=== PATIENT | male | born 1980 | race Caucasian/White ===

== ENCOUNTER 2017-11-24 19:22 | Inpatient (IN) ==
[2017-11-24 19:48] LABS: Bilirubin,Urine Large (Negative); Blood,Urine Negative (Negative); Clarity,Urine Clear (Clear); Color,Urine Orange (Yellow); Glucose,Urine (UA) Normal (Normal); Ketones,Urine Trace mg/dL (Negative); Leukocyte Esterase,Urine Trace (Negative); Nitrite,Urine Negative (Negative); Protein,Urine Trace mg/dL (Neg-Trace); Specific Gravity,Urine 1.029 (1.010-1.025); Urobilinogen,Urine Normal (Normal)
[2017-11-24] MEDS ORDERED: Ketorolac 60 MG/2 ML VIAL IM ONE (19:50)
[2017-11-24 19:51] LABS: Bacteria,Urine None Seen per hpf (None-Few); Hyaline Casts,Urine None Seen per lpf (None-Few); RBC,Urine 30-50 per hpf (0-3); Squamous Epithelial Cell,Urine None Seen per lpf (None-Few); WBC,Urine 0-3 per hpf (0-3)
--- NOTE | 2017-11-24 19:55 | Emergency Department Note ---
Disposition Clinical Impression: Acalculous cholecystitis, Direct hyperbilirubinemia, Elevated alkaline phosphatase level, Jaundice Pancreatitis Qualifiers: Chronicity: acute Pancreatitis type: unspecified pancreatitis type Acute pancreatitis complication: unspecified Qualified Code(s): K85.90 - Acute pancreatitis without necrosis or infection, unspecified Disposition: Admitted As Inpatient Condition: Good Time of Disposition: 23:10 General Adult HPI - General Chief complaint: ED Abdominal Pain Stated complaint: lower back pain Time Seen by Provider: 11/24/17 19:36 Source: patient Mode of arrival: ambulatory Limitations: no limitations Nursing Notes Reviewed: Yes Vital Signs Reviewed: Yes - History of Present Illness HPI Narrative: Mr. Sinclair is a very pleasant 37-year-old woman with a past history of rheumatoid arthritis or presents to the [facility] emergency department with chief complaint of low back pain and yellowing of the eyes. He reports that the symptoms have been present for roughly 5 days. At that time he was walking through a doorway and the door swung back and hit his right lower back abruptly and cause significant pain dropping into the floor. Since then his pain has been intermittently sharp in nature and nonradiating. He denies any abdominal pain, chest pain, palpitations, or shortness of breath. No subjective fevers. Over the last several days he has been complaining of nausea, vomiting and diarrhea that resolved 1 day ago. No recent sick contacts. No history of this previously. No EtOH or tobacco abuse. History of IV drug use. Family history with two of his uncles passing away from pancreatic cancer. No prior abdominal surgeries. No other complaints at this time. Pain Scale: 7 - Related Data Home Medications Medication Instructions Recorded Confirmed No Known Home Drugs 11/25/17 11/25/17 Allergies Allergy/AdvReac Type Severity Reaction Status Date / Time No Known Allergies Allergy Verified 05/09/16 23:50 Review of Systems: As Per HPI Past Medical History - Past Medical History Medical history: Reports: no medical history, other Surgical history: Reports: herniorrhaphy Psychiatric history: Reports: no psych history - Social History Smoking Status: Never smoker Alcohol use: Reports: none Drug use: Reports: none Physical Exam CONSTITUTIONAL: Alert and oriented X3 in no apparent distress HEAD: Normocephalic; atraumatic. EYES: EOMI, scleral icterus present Oropharynx: pink/moist RESP: NRD without use of accessory musculature, CTA b/l with no wheezes/rales/ rhonchi CARD: Regular rhythm, without murmurs, rubs, or gallop ABD: grossly normal, soft, non-tender, no guarding/distention/rigidity SKIN: Diffusely jaundiced throughout BACK: Right lumbar paraspinal spasm and tenderness to palpation EXT: DP/Rad pulses 2+ and symmetrical; no lateralizing edema; no other lesions seen PSYCH: appropriate mood/affect - General Limitations: no limitations General appearance: alert, in no apparent distress Course Course Narrative: Patient was seen and examined at bedside. Vital signs were reviewed and were unremarkable. Physical examination demonstrates scleral icterus with noticing throughout. Abdominal exam was benign. Back exam demonstrates right lumbar paraspinal tenderness to palpation and muscle spasm. Toradol and Flexeril were given. IV access was obtained. In the setting of painless jaundice will further evaluate with CT of the abdomen and pelvis with IV contrast. Urinalysis , CBC, Lipase, BMP, hepatic panel, coags were obtained. Disposition pending. 2131: Initial workup shows elevated LFTs and alk phos. Direct bilirubin 4.4 and indirect 1.3. Urine shows bilirubin. CT shows a contracted diffuse wall thickening with pericholecystic fluid. Findings were discussed with patient and we will proceed with US of the gallbladder. Zosyn x1 dose was given. 2300: Ultrasound gallbladder demonstrated findings consistent with acalculous cholecystitis. No stones present. No dilation of CBD. Case was discussed with general surgery team, Dr. Barajas and Hospitalist, Dr. Hutton who will admit patient for further evaluation and intervention. Disposition plan were discussed with patient who understands and agrees. All questions and concerns were addressed. Vital Signs Temperature 97.5 F L 11/24/17 19:31 Pulse Rate 73 11/24/17 19:31 Respiratory Rate 16 11/24/17 19:31 Blood Pressure 120/80 11/24/17 19:31 O2 Sat by Pulse Oximetry 99 11/24/17 19:31 Temperature 97.9 F 11/26/17 10:44 Pulse Rate 59 11/26/17 10:44 Respiratory Rate 12 11/26/17 10:44 Blood Pressure 116/76 11/26/17 10:44 O2 Sat by Pulse Oximetry 97 11/26/17 10:44 Oxygen Delivery Oxygen Delivery Room Air Medical Decision Making - Medical Records Medical records reviewed: Yes I reviewed the patient's medical records. - Lab Data Lab results reviewed: Yes I reviewed the patient's lab results. Result diagrams: 11/26/17 06:01 11/26/17 06:01 Lab Results 11/24/17 11/24/17 11/24/17 Range/Units 19:29 20:04 20:04 WBC (4.3-11.1) K/mcL RBC (4.19-5.50) M/mcL Hgb (12.9-16.9) g/dL Hct (37.5-50.1) % MCV (83.0-100.0) fL MCH (28.0-33.3) pg MCHC (31.6-35.5) g/dL RDW (11.5-14.5) % Plt Count (140-400) K/mcL MPV (9.4-12.4) fL Immature Gran % (0-4) % Seg Neutrophils % % Lymphocytes % % Monocytes % % Eosinophils % % Basophils % % Neutrophils # (1.6-8.9) K/mcL Lymphocytes # (0.6-4.6) K/mcL Monocytes # (0.0-1.3) K/mcL Eosinophils # (0.0-0.6) K/mcL Basophils # (0.0-0.2) K/mcL Reactive Lymphocytes (Not Present) PT 13.0 H (9.4-12.1) Seconds INR 1.2 APTT 37.1 H (26.0-36.0) Seconds Sodium 135 L (136-145) mEq/L Potassium 4.3 (3.5-5.1) mEq/L Chloride 102 (98-107) mEq/L Carbon Dioxide 30 H (23-29) mEq/L BUN 14 (6-20) mg/dL Creatinine 0.90 (0.70-1.30) mg/dL Est GFR ( Amer) > 60 (> 60) Est GFR (Non-Af Amer) > 60 (> 60) BUN/Creatinine Ratio 16 (6-26) Glucose 108 H (70-105) mg/dL POC Glucose (70-99) mg/dL Calculated Osmolality 281 (280-300) Calcium 8.3 L (8.6-10.3) mg/dL Total Bilirubin 5.7 H (0.3-1.0) mg/dL Direct Bilirubin 4.4 H (0.0-0.2) mg/dL Indirect Bilirubin 1.3 H (0.0-1.2) mg/dL AST 1501 H (13-39) Units/L ALT > 500 H (7-52) Units/L Alkaline Phosphatase 360 H (34-104) Units/L Serum Total Protein 5.9 L (6.4-8.9) g/dL Albumin 3.2 L (3.5-5.7) g/dL Globulin 2.7 (2.4-3.5) g/dL Albumin/Globulin Ratio 1.2 (1.1-2.2) Lipase 336 H (11-82) Units/L Urine Color [place] A (Yellow) Urine Clarity Clear (Clear) Urine pH 6.0 (5.0-8.0) pH Units Ur Specific [employer] 1.029 H (1.010-1.025) Urine Protein Trace (Neg-Trace) mg/dL Urine Glucose (UA) Normal (Normal) mg/dL Urine Ketones Trace H (Negative) mg/dL Urine Blood Negative (Negative) Urine Nitrite Negative (Negative) Urine Bilirubin Large H (Negative) Urine Urobilinogen Normal (Normal) mg/dL Ur Leukocyte Esterase Trace H (Negative) Urine Microscopic RBC 30-50 H (0-3) per hpf Urine Microscopic WBC 0-3 (0-3) per hpf Ur Squamous Epith Cells None Seen (None-Few) per lpf Urine Bacteria None Seen (None-Few) per hpf Hyaline Casts None Seen (None-Few) per lpf Ur Culture Indicated? YES A (NO) 11/24/17 11/25/17 Range/Units 20:04 00:37 WBC 4.6 (4.3-11.1) K/mcL RBC 4.96 (4.19-5.50) M/mcL Hgb 14.7 (12.9-16.9) g/dL Hct 43.9 (37.5-50.1) % MCV 88.5 (83.0-100.0) fL MCH 29.6 (28.0-33.3) pg MCHC 33.5 (31.6-35.5) g/dL RDW 13.9 (11.5-14.5) % Plt Count 231 (140-400) K/mcL MPV 10.9 (9.4-12.4) fL Immature Gran % 0.0 (0-4) % Seg Neutrophils % 48.9 % Lymphocytes % 31.0 % Monocytes % 16.9 % Eosinophils % 2.6 % Basophils % 0.6 % Neutrophils # 2.3 (1.6-8.9) K/mcL Lymphocytes # 1.4 (0.6-4.6) K/mcL Monocytes # 0.8 (0.0-1.3) K/mcL Eosinophils # 0.1 (0.0-0.6) K/mcL Basophils # 0.0 (0.0-0.2) K/mcL Reactive Lymphocytes Present A (Not Present) PT (9.4-12.1) Seconds INR APTT (26.0-36.0) Seconds Sodium (136-145) mEq/L Potassium (3.5-5.1) mEq/L Chloride (98-107) mEq/L Carbon Dioxide (23-29) mEq/L BUN (6-20) mg/dL Creatinine (0.70-1.30) mg/dL Est GFR ( Amer) (> 60) Est GFR (Non-Af Amer) (> 60) BUN/Creatinine Ratio (6-26) Glucose (70-105) mg/dL POC Glucose 100 H (70-99) mg/dL Calculated Osmolality (280-300) Calcium (8.6-10.3) mg/dL Total Bilirubin (0.3-1.0) mg/dL Direct Bilirubin (0.0-0.2) mg/dL Indirect Bilirubin (0.0-1.2) mg/dL AST (13-39) Units/L ALT (7-52) Units/L Alkaline Phosphatase (34-104) Units/L Serum Total Protein (6.4-8.9) g/dL Albumin (3.5-5.7) g/dL Globulin (2.4-3.5) g/dL Albumin/Globulin Ratio (1.1-2.2) Lipase (11-82) Units/L Urine Color (Yellow) Urine Clarity (Clear) Urine pH (5.0-8.0) pH Units Ur Specific [employer] (1.010-1.025) Urine Protein (Neg-Trace) mg/dL Urine Glucose (UA) (Normal) mg/dL Urine Ketones (Negative) mg/dL Urine Blood (Negative) Urine Nitrite (Negative) Urine Bilirubin (Negative) Urine Urobilinogen (Normal) mg/dL Ur Leukocyte Esterase (Negative) Urine Microscopic RBC (0-3) per hpf Urine Microscopic WBC (0-3) per hpf Ur Squamous Epith Cells (None-Few) per lpf Urine Bacteria (None-Few) per hpf Hyaline Casts (None-Few) per lpf Ur Culture Indicated? (NO) - Radiology Data Radiology results reviewed: Yes I reviewed the patient's radiology results. Abdomen/Pelvis CT 11/24/17 20:39 IMPRESSION: Gallbladder is mildly contracted diffuse wall thickening/pericholecystic fluid. Mild nonspecific periportal edema. RECOMMENDATIONS: Further evaluation can be considered with gallbladder ultrasound, HIDA scan and/or MRCP D/ / Edilia Gauthier MD / Edilia Gauthier MD Interpreting Provider: Edilia Gauthier MD Gallbladder Ultrasound 11/24/17 21:28 IMPRESSION: 1. The gallbladder wall appears to be thick walled and edematous but no gallstones are visualized. Findings suggest the possibility of acalculous cholecystitis. 2. Otherwise, unremarkable right upper quadrant ultrasound D/ / Blayne Bhagat MD / Blayne Bhagat MD Interpreting Provider: Blayne Bhagat MD Attestation Statement - Attestation Attestation: I examined this patient and my medical decision-making was reviewed with the Resident Physician, Dr. Ojeda. I agree with the documented findings, disposition and treatment plan as described except to the extent set forth below. Pt is a 7-year-old white male who denies having any significant past medical history who presents to the emergency department today with a 5 day history of gradually worsening paraspinal musculoskeletal back pain following injury at home. Patient arrives with jaundice and scleral icterus but denies any fevers or chills, no abdominal pain or cramping, no nausea vomiting, does admit to a history of IV drug use. Patient denies any abscess or skin changes, no bowel changes, and no mental status changes on arrival. Patient is awake alert and oriented 4 in no acute distress with no other complaints. I agree with patient's physical exam findings as documented, vital signs are stable on arrival. Patient was evaluated in clinically on exam from a reported blunt injury while walking through a doorway sustained what appears to be some area of muscle contusion and spasm. Patient with palpable spasm on exam and likely the cause of his back discomfort. This was treated with medication on arrival. Her bigger concern was the fact that patient was having painless jaundice in a family history of pancreatic cancer. Patient had full laboratory evaluation including CT scan of the abdomen and pelvis with contrast as well as ultrasound imaging of the gallbladder. Patient was found have a calculus cholecystitis, pancreatitis, and jaundice. No stones were seen on either evaluation but there is concern for an obstructive issue in the biliary tract. Case was discussed with Dr. barajas who was consulate from the ED to follow the patient and he was admitted to the hospitalist service following antibiotics being initiated in the ED. Patient has remained comfortable and hemodynamically stable in no acute distress throughout his ED course.
[2017-11-24 20:36] LABS: BUN/Creatinine Ratio 16 (6-26); Blood Urea Nitrogen 14 mg/dL (6-20); Calcium 8.3 mg/dL (8.6-10.3); Carbon Dioxide 30 mEq/L (23-29); Chloride 102 mEq/L (98-107); Glucose 108 mg/dL (70-105); Osmolality,Calculated 281 (280-300); Potassium 4.3 mEq/L (3.5-5.1); Sodium 135 mEq/L (136-145); eGFR For African Americans > 60 (> 60); eGFR For Non-African Americans > 60 (> 60)
[2017-11-24 20:49] LABS: INR 1.2
[2017-11-24 20:51] LABS: Activated Partial Thrombo Time 37.1 Seconds (26.0-36.0)
[2017-11-24 21:01] LABS: Alanine Aminotransferase > 500 Units/L (7-52); Albumin 3.2 g/dL (3.5-5.7); Albumin/Globulin Ratio 1.2 (1.1-2.2); Alkaline Phosphatase 360 Units/L (34-104); Aspartate Amino Transferase 1501 Units/L (13-39); Bilirubin,Direct 4.4 mg/dL (0.0-0.2); Bilirubin,Indirect 1.3 mg/dL (0.0-1.2); Bilirubin,Total 5.7 mg/dL (0.3-1.0); Globulin 2.7 g/dL (2.4-3.5); Total Protein 5.9 g/dL (6.4-8.9)
[2017-11-24] MEDS ORDERED: 0.9 % Sodium Chloride 1,000 ML ONE (21:06)
[2017-11-24 21:44] LABS: Basophils % 0.6 %; Eosinophils # 0.1 K/mcL (0.0-0.6); Eosinophils % 2.6 %; Hematocrit 43.9 % (37.5-50.1); Hemoglobin 14.7 g/dL (12.9-16.9); Lymphocytes # 1.4 K/mcL (0.6-4.6); Mean Corpuscular HGB Conc 33.5 g/dL (31.6-35.5); Mean Corpuscular Hemoglobin 29.6 pg (28.0-33.3); Mean Corpuscular Volume 88.5 fL (83.0-100.0); Mean Platelet Volume 10.9 fL (9.4-12.4); Monocytes # 0.8 K/mcL (0.0-1.3); Monocytes % 16.9 %; Neutrophils # 2.3 K/mcL (1.6-8.9); Platelet Count 231 K/mcL (140-400); Red Blood Count 4.96 M/mcL (4.19-5.50); Red Cell Distribution Width 13.9 % (11.5-14.5); Segmented Neutrophils % 48.9 %
[2017-11-24 21:57] LABS: Lipase 336 Units/L (11-82)
[2017-11-24 22:06] LABS: Reactive Lymphocytes Present (Not Present)
[2017-11-24] MEDS ORDERED: Piperacillin/Tazobactam 3.375 GM in 0.9 % Sodium Chloride Mini Bag 100 ML IVPB ONE (22:06)
[2017-11-25] MEDS ORDERED: Naloxone 0.4 MG/ML INJ IVP PRN (03:18)
[2017-11-25] MEDS ORDERED: 0.9 % Sodium Chloride 1,000 ML ONE (03:40)
[2017-11-25] MEDS: 0.9 % Sodium Chloride 1,000 ML IVC SCH ×2 (03:49→12:15)
[2017-11-25] MEDS: Ketorolac 15 MG/ML VIAL IVP PRN ×2 (03:53→23:29)
[2017-11-25 05:08] LABS: Basophils % 0.4 %; Eosinophils # 0.2 K/mcL (0.0-0.6); Eosinophils % 3.2 %; Hematocrit 40.6 % (37.5-50.1); Hemoglobin 13.9 g/dL (12.9-16.9); Immature Granulocytes % 0.2 % (0-4); Lymphocytes # 1.4 K/mcL (0.6-4.6); Lymphocytes % 29.1 %; Mean Corpuscular HGB Conc 34.2 g/dL (31.6-35.5); Mean Corpuscular Volume 87.7 fL (83.0-100.0); Mean Platelet Volume 10.7 fL (9.4-12.4); Monocytes # 0.7 K/mcL (0.0-1.3); Monocytes % 14.3 %; Neutrophils # 2.5 K/mcL (1.6-8.9); Platelet Count 232 K/mcL (140-400); Red Blood Count 4.63 M/mcL (4.19-5.50); Red Cell Distribution Width 13.8 % (11.5-14.5); Segmented Neutrophils % 52.8 %
[2017-11-25 05:26] LABS: INR 1.2; Prothrombin Time 12.8 Seconds (9.4-12.1)
--- NOTE | 2017-11-25 05:30 | Internal Med History&Physical ---
Date of Encounter: 11/25/17 Time of Encounter: 01:00 Internal Medicine - H&P: HPI Chief complaint: Low back pain Admitted From: Home Plans for Post Hospital Care: Home History of present illness: Mr. Sinclair is a 37 year old male presents to ER for low back pain. Patient is generally in good health. Has remote history of IV drug use. Patient said he has low back pain since the 5 days ago. The pain located on bilateral lower back and radiated to lower abdominal. Patient denies dysuria, burning on urination, or increased frequency/urgency. Patient has mild subjective fever. He has chills. 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 Patient has nausea and has vomited 6-7 times in last 5 days, the vomiting are liquid, no blood in it. In the emergency room, patient was found elevated bilirubin, especially direct bilirubin. CT abdomen has been done, suggest cholecystitis. Further US liver shows possible acalculous cholecystitis. No CBD dilation identified. Patient was admitted for jaundice, possible cholecystitis, abnormal liver function, and UTI Past Med Surg Social Fam HX - Past Medical History Medical history: no medical history, other Psychiatric history: no psych history - Past Surgical History Surgical History: herniorrhaphy - Social History Smoking Status: Never smoker Smokeless Tobacco Status: No Alcohol use: none Drug use: none - Family History Father Name: aHi Sinclair Age: 60 Living Status: Still Living Hx Family Neuromuscular Disorders: Yes (Arthritis, spindolosis, nec and hip surgery) Internal Medicine - H&P: Meds RX: Meloxicam 15 mg PO DAILY PRN #0 05/13/16 [Rx] 3 Allergy/AdvReac Type Severity Reaction Status Date / Time No Known Allergies Allergy Verified 05/09/16 23:50 All Systems PM: A 10-system review of systems was performed and is negative for pertinent findings except as documented above in the HPI. - Constitutional Vitals: Temp Pulse Resp BP Pulse Ox 98.2 F 63 14 129/79 98 11/25/17 03:35 11/25/17 03:35 11/25/17 03:35 11/25/17 03:35 11/25/17 03:35 General appearance: Present: mild distress, A&O X 3, answers questions appropriately - Head Head exam: Present: atraumatic, normocephalic - Eye Eye exam: Present: PERRL, scleral icterus, conjuntiva pink, sclera anicteric Pupils: Present: PERRL - Neck Neck exam general surgery: Present: supple, trachea midline. Absent: lymphadenopathy - Respiratory Respiratory exam: Present: CTAB. Absent: accessory muscle use, rales, rhonchi, wheezes - Cardiovascular Cardiovascular exam: Present: RRR, +S1, +S2. Absent: diastolic murmur, gallop, rubs, systolic murmur - GI/Abdominal GI/Abdominal exam: Present: normal bowel sounds, soft, tenderness (Mild tenderness on bilateral lower quadrant, no rebound or guarding), no peritoneal signs. Absent: distended - Extremities Exam Extremities exam: Present: warm, radial pulses palpable and symmetrical. Absent : calf tenderness, cyanotic, pedal edema - Neurological Exam Neurological exam: Present: CN II-XII intact, oriented X3, no focal deficits. Absent: pronater drift, facial droop, speech deficit - Skin Skin exam: Present: dry, intact Internal Med - H&P Results - Labs CBC & Chem 7: 11/24/17 20:04 11/24/17 20:04 - Assessment and plan (1) Abnormal liver function Current Visit: Yes Status: Acute Assessment and plan: Patient has significantly high AST/ALT level, etiology is undetermined. No bile duct obstruction identified on US liver. - Patient has a history of IV drug use, will check hepatitis panel to rule out hepatitis - Absolutely avoid hepatotoxic medications - Patient denies recent new medication. He take Aleve for pain occasionally recently. Denies acetaminophen use - Closely follow-up liver function, PT/INR - We will consult GI for further management (2) Acalculous cholecystitis Current Visit: Yes Status: Acute Assessment and plan: US liver shows acalculous cholecystitis. Surgical consult was called by ER. - Place patient on nothing by mouth, IV fluid - IV Zosyn - Surgical consult (3) Jaundice Current Visit: Yes Status: Acute Assessment and plan: Etiology is undetermined. Direct bilirubin dominated, however, no bile duct obstruction identified. - Consult surgery and GI for further recommendation - Closely follow-up liver function - Keep patient nothing by mouth, IV fluid. (4) Pancreatitis Current Visit: Yes Status: Acute Assessment and plan: Patient has elevated lipase. Continue nothing by mouth, IV fluid, pain control. Follow-up lipase level Qualifiers: Chronicity: acute Pancreatitis type: unspecified pancreatitis type Acute pancreatitis complication: unspecified Qualified Code(s): K85.90 - Acute pancreatitis without necrosis or infection, unspecified (5) DVT prophylaxis Current Visit: No Status: Acute Assessment and plan: EPCD - Time Spent With Patient Total time spent is greater than 50% in coordination of care (as documented) at patient's floor/unit and/or counseling patient: 40 minutes Greater than 35 minutes
[2017-11-25 05:57] LABS: Platelet Estimate Slight Decrease (Normal)
[2017-11-25 05:59] LABS: Alanine Aminotransferase > 500 Units/L (7-52); Albumin 2.8 g/dL (3.5-5.7); Albumin/Globulin Ratio 1.1 (1.1-2.2); Alkaline Phosphatase 330 Units/L (34-104); Aspartate Amino Transferase 1183 Units/L (13-39); BUN/Creatinine Ratio 16 (6-26); Bilirubin,Direct 4.6 mg/dL (0.0-0.2); Bilirubin,Indirect 1.1 mg/dL (0.0-1.2); Bilirubin,Total 5.7 mg/dL (0.3-1.0); Blood Urea Nitrogen 13 mg/dL (6-20); Calcium 7.7 mg/dL (8.6-10.3); Carbon Dioxide 27 mEq/L (23-29); Chloride 105 mEq/L (98-107); Globulin 2.5 g/dL (2.4-3.5); Glucose 102 mg/dL (70-105); Magnesium 1.5 mg/dL (1.6-2.6); Osmolality,Calculated 282 (280-300); Potassium 3.3 mEq/L (3.5-5.1); Sodium 136 mEq/L (136-145); Total Protein 5.3 g/dL (6.4-8.9); eGFR For African Americans > 60 (> 60); eGFR For Non-African Americans > 60 (> 60)
[2017-11-25 06:29] LABS: Hepatitis B Core IgM Nonreactive (Nonreactive); Hepatitis B Surface Antigen Nonreactive (Nonreactive)
[2017-11-25 06:55] LABS: Hepatitis A Antibody IgM Reactive (Nonreactive)
[2017-11-25 06:59] LABS: Hepatitis C Virus Antibody Reactive (Nonreactive)
[2017-11-25] MEDS: Piperacillin/Tazobactam 3.375 GM in 0.9 % Sodium Chloride Mini Bag 100 ML IVPB SCH ×3 (09:17→23:25)
[2017-11-25] MEDS ORDERED: Potassium Chloride 40 MEQ, Lidocaine 1% 2 ML in D5% in Water 500 ML IVPB ONE (10:22)
--- NOTE | 2017-11-25 13:58 | General Surgery Consult Note ---
Date of Encounter: 11/25/17 Time of Encounter: 12:55 History of Present Illness Consult date: 11/25/17 Reason for consult: abdominal pain Requesting physician: Perez Ojeda History of present illness: 37-year-old male referred for further surgical evaluation and possible treatment after presenting to the emergency department with a 5-6 day history of progressive low back pain and jaundice. Patient describes progressive abdominal pain, companied by nausea, vomiting, and diarrhea. Evaluation in the emergency department included blood work and CT abdomen/pelvis. Laboratories notable for normal white count of 4.6 with no significant differential; hemoglobin 14.7, hematocrit 43.9. Platelet count 231,000. PT was slightly elevated at 13.0, INR 1.2. Electrolytes notable for sodium of 135, bicarbonate 30, BUN 14, creatinine 0.90. Total bilirubin 5.7 with a direct component 4.4; AST 1501; ALT greater than 500; alkaline phosphatase 360. Lipase 336. Repeat labs this morning show a persistent hyperbilirubinemia 5.7, AST has improved slightly to 1183, ALT remains greater than 500; alkaline phosphatase 330. Lipase 268 CT abdomen/pelvis was reviewed with [facility]. In addition ultrasound of the gallbladder was also reviewed. Findings include mild periportal edema within the liver; gallbladder is contracted with diffuse wall thickening and surrounding fluid. The fluid is described as pericholecystic fluid however in the face of acute pancreatitis, this fluid may be due to liver disease such as hepatitis rather than an acute cholecystitis. USGB also showed a contracted thick-walled gallbladder with edematous flui in the gallbladder wall. No gallstones were visualized. The sonographic Keating sign was described as negative. The findings are suggestive of hepatitis rather than gallbladder disease. Past medical history: Unremarkable; the patient denies any prior knowledge of hepatitis though has multiple cutaneous tattoos Allergies: No known drug allergies Medications: Patient is on no home medications Surgical history: Bilateral inguinal herniorrhaphies completed several years ago. Social history: Patient denies ever having smoked; he does not consume alcohol or use illicit drugs. Physical examination: Age-appropriate male who appears to be in no acute distress. He is admittedly feeling better than on presentation to the emergency department. He is 1.75 m tall, 75.4 kg, BMI 24.5 The patient is afebrile at 98.1, pulse 60, respirations 14, blood pressure 121/78. SPO2 on room air 98% The patient is icteric; he has multiple cutaneous to 2 Lungs: Clear bilaterally; no obvious abdominal pain with deep inspiration Cardiac: Regular rate, no appreciable murmurs Abdomen: Soft with minimal epigastric tenderness; no obvious intra-abdominal masses. No rebound. Hypoactive bowel sounds. Extremities: No obvious clubbing, cyanosis, or edema. Impression: 37-year-old male admitted after presenting to emerge from with fiber six-day history progressive abdominal pain, low back pain and jaundice. Surgical referral for possible acute acalculous cholecystitis. The current clinical findings, history and radiologic imaging is more consistent with hepatitis and pancreatitis of indeterminate etiology Recommendations: further evaluation by [facility]; possible MRCP v ERCP Hepatitis profile; Hb scan with CCK Will defer surgical intervention/cholecystectomy for now. Past Med Surg Social Fam HX - Past Medical History Medical history: no medical history, other Psychiatric history: no psych history - Past Surgical History Surgical History: herniorrhaphy - Social History Smoking Status: Never smoker Smokeless Tobacco Status: No Alcohol use: none Drug use: none - Family History Father Name: Hai Sinclair Age: 60 Living Status: Still Living Hx Family Neuromuscular Disorders: Yes (Arthritis, spindolosis, nec and hip surgery) Medications and Allergies No Known Home Drugs 11/25/17 [History] 3 Allergy/AdvReac Type Severity Reaction Status Date / Time No Known Allergies Allergy Verified 05/09/16 23:50 Review of Systems All systems PM: The remainder of the systems were reviewed and are negative General Surgery Exam Initial Vital Signs Temp Pulse Resp BP Pulse Ox 97.5 F L 73 16 120/80 99 11/24/17 19:31 11/24/17 19:31 11/24/17 19:31 11/24/17 19:31 11/24/17 19:31 Exam Initial Vital Signs Temp Pulse Resp BP Pulse Ox 97.5 F L 73 16 120/80 99 11/24/17 19:31 11/24/17 19:31 11/24/17 19:31 11/24/17 19:31 11/24/17 19:31 Results - Labs 11/25/17 04:38 11/25/17 04:38 Abnormal lab results Reactive Lymphocytes Present (Not Present) A 11/24/17 20:04 Platelet Estimate Slight Decrease (Normal) L 11/25/17 04:38 PT 12.8 Seconds (9.4-12.1) H 11/25/17 04:38 APTT 37.1 Seconds (26.0-36.0) H 11/24/17 20:04 Potassium 3.3 mEq/L (3.5-5.1) L 11/25/17 04:38 Calcium 7.7 mg/dL (8.6-10.3) L 11/25/17 04:38 Magnesium 1.5 mg/dL (1.6-2.6) L 11/25/17 04:38 Total Bilirubin 5.7 mg/dL (0.3-1.0) H 11/25/17 04:38 Direct Bilirubin 4.6 mg/dL (0.0-0.2) H 11/25/17 04:38 AST 1183 Units/L (13-39) H 11/25/17 04:38 ALT > 500 Units/L (7-52) H 11/25/17 04:38 Alkaline Phosphatase 330 Units/L (34-104) H 11/25/17 04:38 Serum Total Protein 5.3 g/dL (6.4-8.9) L 11/25/17 04:38 Albumin 2.8 g/dL (3.5-5.7) L 11/25/17 04:38 Lipase 268 Units/L (11-82) H 11/25/17 04:38 Urine Color [place] (Yellow) A 11/24/17 19:29 Ur Specific [place] 1.029 (1.010-1.025) H 11/24/17 19:29 Urine Ketones Trace mg/dL (Negative) H 11/24/17 19:29 Urine Bilirubin Large (Negative) H 11/24/17 19:29 Ur Leukocyte Esterase Trace (Negative) H 11/24/17 19:29 Urine Microscopic RBC 30-50 per hpf (0-3) H 11/24/17 19:29 Ur Culture Indicated? YES (NO) A 11/24/17 19:29 Hepatitis C Ab Screen Reactive (Nonreactive) H 11/25/17 04:38 Diabetes panel 11/25/17 Range/Units 04:38 Sodium 136 (136-145) mEq/L Potassium 3.3 L (3.5-5.1) mEq/L Chloride 105 (98-107) mEq/L Carbon Dioxide 27 (23-29) mEq/L BUN 13 (6-20) mg/dL Creatinine 0.79 (0.70-1.30) mg/dL Glucose 102 (70-105) mg/dL Calcium 7.7 L (8.6-10.3) mg/dL AST 1183 H (13-39) Units/L ALT > 500 H (7-52) Units/L Alkaline Phosphatase 330 H (34-104) Units/L Albumin 2.8 L (3.5-5.7) g/dL Calcium panel 11/25/17 Range/Units 04:38 Calcium 7.7 L (8.6-10.3) mg/dL Albumin 2.8 L (3.5-5.7) g/dL Pituitary panel 11/25/17 Range/Units 04:38 Sodium 136 (136-145) mEq/L Potassium 3.3 L (3.5-5.1) mEq/L Chloride 105 (98-107) mEq/L Carbon Dioxide 27 (23-29) mEq/L BUN 13 (6-20) mg/dL Creatinine 0.79 (0.70-1.30) mg/dL Glucose 102 (70-105) mg/dL Calcium 7.7 L (8.6-10.3) mg/dL Adrenal panel 11/25/17 Range/Units 04:38 Sodium 136 (136-145) mEq/L Potassium 3.3 L (3.5-5.1) mEq/L Chloride 105 (98-107) mEq/L Carbon Dioxide 27 (23-29) mEq/L BUN 13 (6-20) mg/dL Creatinine 0.79 (0.70-1.30) mg/dL Glucose 102 (70-105) mg/dL Calcium 7.7 L (8.6-10.3) mg/dL Total Bilirubin 5.7 H (0.3-1.0) mg/dL AST 1183 H (13-39) Units/L ALT > 500 H (7-52) Units/L Alkaline Phosphatase 330 H (34-104) Units/L Albumin 2.8 L (3.5-5.7) g/dL All other labs normal. Consult Discharge Plan - Plan Referrals: Efren Garcia DO [Partnered Physician] -
--- NOTE | 2017-11-25 14:08 | Gastroenterology Consult Note ---
<Aminata Keene - Last Filed: 11/25/17 14:03> Date of Encounter: 11/25/17 Time of Encounter: 11:05 - Assessment and plan (1) Abnormal liver function Current Visit: Yes Status: Acute Assessment and plan: Pt has elevated LFTs most likely due to Hep C infection. CT shows nonspecific edema of the gallbladder wall without cholelithiasis. Lipase is also elevated which may indicate acute pancreatitis. Will order MRCP to rule out choledocholithiasis. Pt likely does not have acalculus choleystitis as he does not appear acutely ill at this time. - Time Spent With Patient Total time spent is greater than 50% in coordination of care (as documented) at patient's floor/unit and/or counseling patient: GI History of Present Illness - Data of Consult Patient: new to practice Consult date: 11/25/17 Requesting Physician: Cameron Sharp MD - Consult Narrative Reason for consult: elevated LFTs History of present illness: Mr. Sinclair is a 37 year old male presents to ER for low back pain. Patient is generally in good health. Has remote history of IV drug use, denies any IVDU in the past year. Patient said he has low back pain since the 5 days ago. The pain located on bilateral lower back and radiated to lower abdominal. Patient denies dysuria, burning on urination, or increased frequency/urgency. Patient has mild subjective fever. He has chills. Patient has noticed the urine color is dark orange for about 5 days, with stool color is harmonic analyst than normal. Patient has nausea and has vomited 6-7 times in last 5 days, the vomiting are liquid, no blood in it. In the emergency room, patient was found elevated bilirubin, especially direct bilirubin. CT abdomen has been done, suggest cholecystitis. Further US liver shows possible acalculous cholecystitis. No CBD dilation identified. Patient was admitted for jaundice, possible cholecystitis, abnormal liver function, and UTI. He denies any nausea, vomiting , abdominal pain at this time. he states lower back pain in somewhat improved. He denies any bloody or tarry stools. He denies any previous liver disease or jaundice. He states Hep C is a new diagnosis. EGD: denies Colon: denies NSAIDS toradol, aleve on occasion more often the past week Anticoagulation: denies Past Med Surg Social Fam HX - Past Medical History Medical history: no medical history, other Psychiatric history: no psych history - Past Surgical History Surgical History: herniorrhaphy - Social History Smoking Status: Never smoker Smokeless Tobacco Status: No Alcohol use: none Drug use: none - Family History Father Name: Hai Sinclair Age: 60 Living Status: Still Living Hx Family Neuromuscular Disorders: Yes (Arthritis, spindolosis, nec and hip surgery) Review of Systems: GI: as per [facility]RAIG GENERAL: reports low grade temp and chills at home EYES: yellow discoloration ENT: denies pain with swallowing or difficulty swallowing CARDIO: denies chest pain, palpitations RESP: No Shortness of breath with exertion : reports dark orange urine NEURO: denies any weakness HEME: Denies any bruising MS: denies joint pain, joint swelling or back pain. DERM: denies rash or itching PSYCH: Denies history of anxiety or depression - Constitutional Vitals: Temp Pulse Resp BP Pulse Ox 98.1 F 60 14 121/78 98 11/25/17 11:11 11/25/17 11:11 11/25/17 11:11 11/25/17 11:11 11/25/17 11:11 Exam: CONSTITUTIONAL:~alert, no acute distress.~HEAD:~normocephalic.~EYES:~jaundice.~ NECK:~no obvious swelling.~HEART:~regular rate and rhythm, no murmurs.~LUNGS:~ bilateral good air entry.~ABDOMEN:~non distended, soft, non tender, no masses palpable, no organomegaly.~RECTAL EXAM:~Deferred.~EXTREMITIES:~no clubbing, cyanosis or edema.~SKIN:~jaundice noted, multiple tattoos.~NEUROLOGIC:~no obvious focal defect.~~~~ Results - Labs CBC & Chem 7: 11/25/17 04:38 11/25/17 04:38 Labs: Last Result Calcium 7.7 mg/dL (8.6-10.3) L 11/25/17 04:38 Entire Visit Hgb 13.9 g/dL (12.9-16.9) 11/25/17 04:38 Hct 40.6 % (37.5-50.1) 11/25/17 04:38 PT 12.8 Seconds (9.4-12.1) H 11/25/17 04:38 Total Bilirubin 5.7 mg/dL (0.3-1.0) H 11/25/17 04:38 AST 1183 Units/L (13-39) H 11/25/17 04:38 ALT > 500 Units/L (7-52) H 11/25/17 04:38 Lipase 268 Units/L (11-82) H 11/25/17 04:38 - ABG ABG results: PT/INR, D-dimer PT 12.8 Seconds (9.4-12.1) H 11/25/17 04:38 Consult Discharge Plan - Plan Referrals: Dann Patel DO [Resident] - 12/07/17 3:20 pm <Marian Shetty - Last Filed: 11/25/17 20:47> Date of Encounter: 11/25/17 Time of Encounter: 19:20 - Time Spent With Patient Total time spent is greater than 50% in coordination of care (as documented) at patient's floor/unit and/or counseling patient: GI History of Present Illness - Data of Consult Requesting Physician: Cameron Sharp MD - Consult Narrative History of present illness: Mr. Sinclair is a 37 year old male - Constitutional Vitals: Temp Pulse Resp BP Pulse Ox 98.9 F 58 15 120/78 99 11/25/17 19:07 11/25/17 19:07 11/25/17 19:07 11/25/17 19:07 11/25/17 19:07 Results - Labs CBC & Chem 7: 11/25/17 04:38 11/25/17 04:38 Labs: Last Result Calcium 7.7 mg/dL (8.6-10.3) L 11/25/17 04:38 Entire Visit Hgb 13.9 g/dL (12.9-16.9) 11/25/17 04:38 Hct 40.6 % (37.5-50.1) 11/25/17 04:38 PT 12.8 Seconds (9.4-12.1) H 11/25/17 04:38 Total Bilirubin 5.7 mg/dL (0.3-1.0) H 11/25/17 04:38 AST 1183 Units/L (13-39) H 11/25/17 04:38 ALT > 500 Units/L (7-52) H 11/25/17 04:38 Lipase 268 Units/L (11-82) H 11/25/17 04:38 - ABG ABG results: PT/INR, D-dimer PT 12.8 Seconds (9.4-12.1) H 11/25/17 04:38 - Attending Attestation I have personally performed a face to face evaluation on this patient. I have reviewed and agree with the care plan. History and Exam by me shows: Patient with acute hepatitis C with abnormal LFTs along with pancreatitis. Does complain of lower back pain. Denies any recent use of any IV drug use. Recommendation: MRCP to make sure patient does not not have any CBD obstruction because of combination of pancreatitis and abnormal LFTs to make sure he did not pass any stone. The thickening of the gallbladder wall is nonspecific and sent if setting of acute hepatitis. If back pain persistent recommend getting a CT or MRI of the lower back to make sure he does not have any abscess.
--- NOTE | 2017-11-25 15:03 | Internal Med Progress Note ---
<Efren Garcia - Last Filed: 11/25/17 15:00> Date of Encounter: 11/25/17 Time of Encounter: 09:45 - Assessment and plan (1) Abnormal liver function Status: Acute Assessment and plan: Patient has significantly high AST/ALT level, etiology is undetermined. No bile duct obstruction identified on US liver. - Likely secondary to hepatitis as below - AST of 1183, ALT greater than 500, alkaline phosphatase 330 - Hepatitis screening panel did return positive for hepatitis A IgM and hepatitis C antibody - Absolutely avoid hepatotoxic medications - Patient denies recent new medication. He take Aleve for pain occasionally recently. - Closely coagulation studies within normal limits - Gastroenterology consult on admission, general surgery consult in emergency room Plan - We will obtain hepatitis quantification lab results as well as HIV screen - Supportive treatment for hepatitis A, will defer to gastroenterology for hepatitis C treatment - Avoid hepatotoxic agents. Toradol when necessary pain -Contact Precautions for hepatitis A per CDC recommendations (2) Acalculous cholecystitis Status: Suspected Assessment and plan: - US liver shows acalculous cholecystitis given pericholecystic fluid, stranding , thickened gallbladder wall - Surgical consult was called by ER. - Patient does not appear to be in any distress, evaluated by both general surgery and gastroenterology who agreed that this is less likely a calculus cholecystitis and more likely a result of hepatitis with possible coinciding pancreatitis Plan - Place patient on nothing by mouth, IV fluid - Gastroenterology will plan for MRCP this afternoon to rule out choledocholithiasis - No plans for surgical intervention at this time - IV Zosyn continued day #1 (3) Pancreatitis Status: Acute Assessment and plan: - Patient has elevated lipase of 268 which is down trending from 336 on admission. - Gastroenterology is following, we will perform an MRCP to rule out choledocholithiasis - Continue supportive treatment including pain meds, fluids, nothing by mouth - He performed in emergency room shows no evidence of pancreatitis on CT scan - Patient does meet 2/3 criteria given abdominal pain, elevated lipase Plan - Follow-up lipase level - Continue supportive treatment as above Qualifiers: Chronicity: acute Pancreatitis type: unspecified pancreatitis type Acute pancreatitis complication: unspecified Qualified Code(s): K85.90 - Acute pancreatitis without necrosis or infection, unspecified (4) Jaundice Status: Acute Assessment and plan: - Direct bilirubin dominated, however, no bile duct obstruction identified. - Consult surgery and GI for further recommendation - Secondary to positive hepatitis C, hepatitis A - Continue supportive treatment and appreciate gastroneurology recommendations Plan - Closely follow-up liver function - Keep patient nothing by mouth, IV fluid. (5) Hepatitis A Status: Acute Assessment and plan: - Hepatitis A IgM positive on screening test - Unclear etiology as patient has no recent travel, unusual food ingestion - GI following, appreciate recommendations Plan - Continue supportive treatment Qualifiers: Hepatic coma status: without hepatic coma Qualified Code(s): B15.9 - Hepatitis A without hepatic coma (6) Hepatitis C Status: Acute Assessment and plan: - Hepatitis C antibody positive on screening test - Patient denies previous history of infection, states that he was screened in June 2017 and was negative at that time - Does have a history of IV drug use, however he does deny use in the last 2 years - Multiple tattoos present - Gastroenterology following Plan - Continue supportive treatment - Trend liver function tests - Deferred gastroenterology, we will likely require outpatient treatment - We will obtain quantification and genotype, HIV test Qualifiers: Viral hepatitis chronicity: unspecified Hepatic coma status: without hepatic coma Qualified Code(s): B19.20 - Unspecified viral hepatitis C without hepatic coma (7) DVT prophylaxis Status: Acute Assessment and plan: EPCD (8) Electrolyte abnormality Status: Acute Assessment and plan: - Patient notably hypokalemic at 3.3 with a magnesium of 1.5 - We will replenish as necessary and trend lab results daily - Time Spent With Patient Total time spent is greater than 50% in coordination of care (as documented) at patient's floor/unit and/or counseling patient: 25 - 35 minutes - Subjective Interval history: This note is not for billing purposes this patient was admitted after midnight. Patient was seen and examined this morning at bedside. He states that he was admitted for back pain and scleral icterus. States that his pain is still present however is improved with medication. Also admits to abdominal pain located in the epigastric and right upper quadrant. Denies any symptoms of nausea, vomiting. States that he has noticed a orange tint to his urine and lightening of his bowel movements. No bowel movement since admission. Confirms that his last known drug use was approximately 2 years ago and that he was screened for hepatitis upon discharge from [facility] in June 2017. Denies any recent travel or unusual foods. - Constitutional Vitals: Temp Pulse Resp BP Pulse Ox 98.1 F 60 14 121/78 98 11/25/17 11:11 11/25/17 11:11 11/25/17 11:11 11/25/17 11:11 11/25/17 11:11 General appearance: Present: mild distress, A&O X 3, answers questions appropriately Exam: Gen.: Vitals noted. No acute distress. AAOx3, resting comfortably in bed HEENT: PERRL/EOMI, oropharynx clear, Normocephalic, atraumatic. Mild scleral icterus Cardiac: RRR, no murmur, +S1/S2 Pulmonary: CTA bilaterally, no wheezes, rales or rhonchi, equal chest expansion Abdomen: soft, mildly tender to palpation in epigastric and right upper quadrant , BS noted, no guarding, nondistended Back: Mildly tender to palpation in right paraspinal muscles Skin: Mild jaundice present diffusely MSK: ROM intact, no joint swelling noted Extremities: no BLE edema, nontender calf, no cyanosis or clubbing Neuro: A&Ox3, moves all extremities, no focal deficits Psych: Appropriate mood and behavior Internal Medicine: Result - Labs CBC & Chem 7: 11/25/17 04:38 11/25/17 04:38 Labs: Short CBC 11/25/17 Range/Units 04:38 WBC 4.7 (4.3-11.1) K/mcL Hgb 13.9 (12.9-16.9) g/dL Hct 40.6 (37.5-50.1) % Plt Count 232 (140-400) K/mcL Neutrophils # 2.5 (1.6-8.9) K/mcL BMP 11/25/17 04:38 Sodium 136 Potassium 3.3 L Chloride 105 Carbon Dioxide 27 BUN 13 Creatinine 0.79 Glucose 102 Calcium 7.7 L Liver Function 11/25/17 Range/Units 04:38 Total Bilirubin 5.7 H (0.3-1.0) mg/dL Direct Bilirubin 4.6 H (0.0-0.2) mg/dL AST 1183 H (13-39) Units/L ALT > 500 H (7-52) Units/L Alkaline Phosphatase 330 H (34-104) Units/L Albumin 2.8 L (3.5-5.7) g/dL - ABG Interpretation ABG results: PT/INR, D-dimer PT 12.8 Seconds (9.4-12.1) H 11/25/17 04:38 - VTE Documentation of Mechanical Device: Intermittent pneumatic compression device Consult Discharge Plan - Plan Additional Instructions: Please follow up with her primary care physician and take all medications as prescribed. We will send and ibuprofen for or pain. Schedule you for a follow- up appointment with gastroenterology for further management of your hepatitis. Referrals: Dann Patel DO [Resident] - 11/30/17 10:00 am Marian Shetty MD [Partnered Physician] - (Web request entered, office will call patient with date and time. Thank you!!!! ) Prescriptions: Ibuprofen 800 mg PO Q6HR PRN #16 tablet PRN Reason: Pain <Loc Hummelul Axelraimundo - Last Filed: 11/26/17 20:16> Date of Encounter: 11/26/17 - Assessment and plan (1) DVT prophylaxis Status: Acute (2) Acalculous cholecystitis Status: Ruled-out (3) Pancreatitis Status: Acute Qualifiers: Chronicity: acute Pancreatitis type: unspecified pancreatitis type Acute pancreatitis complication: unspecified Qualified Code(s): K85.90 - Acute pancreatitis without necrosis or infection, unspecified (4) Jaundice Status: Acute (5) Abnormal liver function Status: Acute (6) Hepatitis A Status: Acute Qualifiers: Hepatic coma status: without hepatic coma Qualified Code(s): B15.9 - Hepatitis A without hepatic coma (7) Hepatitis C Status: Acute Qualifiers: Viral hepatitis chronicity: unspecified Hepatic coma status: without hepatic coma Qualified Code(s): B19.20 - Unspecified viral hepatitis C without hepatic coma (8) Electrolyte abnormality Status: Resolved - Time Spent With Patient Total time spent is greater than 50% in coordination of care (as documented) at patient's floor/unit and/or counseling patient: - Constitutional Vitals: Temp Pulse Resp BP Pulse Ox 97.9 F 59 12 116/76 97 11/26/17 10:44 11/26/17 10:44 11/26/17 10:44 11/26/17 10:44 11/26/17 10:44 Internal Medicine: Result - Labs CBC & Chem 7: 11/26/17 06:01 11/26/17 06:01 Labs: Short CBC 11/26/17 Range/Units 06:01 WBC 4.7 (4.3-11.1) K/mcL Hgb 13.0 (12.9-16.9) g/dL Hct 38.7 (37.5-50.1) % Plt Count 247 (140-400) K/mcL Neutrophils # 2.4 (1.6-8.9) K/mcL BMP 11/26/17 06:01 Sodium 137 Potassium 3.8 Chloride 107 Carbon Dioxide 25 BUN 10 Creatinine 0.88 Glucose 110 H Calcium 8.0 L Liver Function 11/26/17 Range/Units 06:01 Total Bilirubin 6.3 H (0.3-1.0) mg/dL AST 617 H (13-39) Units/L ALT > 500 H (7-52) Units/L Alkaline Phosphatase 391 H (34-104) Units/L Albumin 2.8 L (3.5-5.7) g/dL - ABG Interpretation ABG results: PT/INR, D-dimer PT 12.8 Seconds (9.4-12.1) H 11/25/17 04:38 - Impressions Impressions Abdomen MRI 11/25/17 10:03 IMPRESSION: 1. Exam is degraded because of ascites. 2. Nonspecific periportal edema may be related to ascites or hepatitis. 3. The gallbladder appears contracted with pericholecystic fluid. Acute cholecystitis cannot be excluded. 4. Grossly unremarkable appearance of the common bile duct. Pancreatic duct is not well demonstrated but gross appears unremarkable as well. 5. Nonspecific dena hepatis adenopathy is probably reactive. D/ / Albert Yancey / Albert Yancey Interpreting Provider: Albert Yancey - Attending Attestation I performed a history and physical examination of the patient and discussed his/ her management with the resident. I reviewed the residents note and agree with the documented findings and plan of care.
--- NOTE | 2017-11-25 23:50 | Event Note ---
Date of Encounter: 11/25/17 Time of Encounter: 23:46 Alerted by pts. nurse that pt. wanted to leave AMA d/t not being able to eat or drink. Stated he was told he could eat following MRI results. Went to speak w/ pt. and let him know will start on clear liquids and advance as tolerated. Pt. in agreement w/plan and will stay.
[2017-11-26 06:55] LABS: Alanine Aminotransferase > 500 Units/L (7-52); Albumin 2.8 g/dL (3.5-5.7); Alkaline Phosphatase 391 Units/L (34-104); Aspartate Amino Transferase 617 Units/L (13-39); BUN/Creatinine Ratio 11 (6-26); Bilirubin,Total 6.3 mg/dL (0.3-1.0); Blood Urea Nitrogen 10 mg/dL (6-20); Carbon Dioxide 25 mEq/L (23-29); Chloride 107 mEq/L (98-107); Globulin 2.8 g/dL (2.4-3.5); Glucose 110 mg/dL (70-105); Lipase 131 Units/L (11-82); Magnesium 1.6 mg/dL (1.6-2.6); Osmolality,Calculated 284 (280-300); Potassium 3.8 mEq/L (3.5-5.1); Sodium 137 mEq/L (136-145); Total Protein 5.6 g/dL (6.4-8.9); eGFR For African Americans > 60 (> 60); eGFR For Non-African Americans > 60 (> 60)
[2017-11-26 07:07] LABS: Mean Corpuscular HGB Conc 33.6 g/dL (31.6-35.5); Mean Corpuscular Hemoglobin 29.7 pg (28.0-33.3)
[2017-11-26 07:45] LABS: Basophils % 0.6 %; Eosinophils # 0.2 K/mcL (0.0-0.6); Hematocrit 38.7 % (37.5-50.1); Immature Granulocytes % 0.2 % (0-4); Immature Platelets 4.7 % (1.1-6.1); Lymphocytes # 1.5 K/mcL (0.6-4.6); Lymphocytes % 31.5 %; Mean Corpuscular Volume 88.6 fL (83.0-100.0); Mean Platelet Volume 10.7 fL (9.4-12.4); Monocytes # 0.6 K/mcL (0.0-1.3); Monocytes % 13.5 %; Neutrophils # 2.4 K/mcL (1.6-8.9); Platelet Count 247 K/mcL (140-400); Red Blood Count 4.37 M/mcL (4.19-5.50); Segmented Neutrophils % 50.2 %
[2017-11-26] MEDS: Piperacillin/Tazobactam 3.375 GM in 0.9 % Sodium Chloride Mini Bag 100 ML IVPB SCH (08:57)
[2017-11-26] MEDS: Ketorolac 15 MG/ML VIAL IVP PRN (09:04)
[2017-11-26 10:47] VITALS: BP 116/76
--- NOTE | 2017-11-26 13:45 | Discharge Summary ---
<Efren Garcia - Last Filed: 11/26/17 14:02> - NOTES TO OUTPATIENT PROVIDER Notes to Outpatient Provider: Patient recently diagnosed with hepatitis A and C. He does have labs pending from gastroenterology with a gastrology follow-up at the time of discharge Orders not resulted at time of discharge: Pending orders 11/25/17 15:04 HIV Qualitative PCR(Detection) Routine Hepatitis C Qnt Reflx Genotype Routine 11/26/17 13:08 NITESH IgG KAYCEE rflx IFA Routine Alpha-1-AT Deficiency Reflex Routine Ceruloplasmin Routine MPO/PR3 (ANCA) Antibodies Routine Mitochondrial M2 Antibody, IgG Routine Date of Encounter: 11/26/17 Time of Encounter: 09:05 - Discharge Diagnosis (1) Abnormal liver function Priority: Secondary Status: Acute Assessment and Plan: Patient has significantly high AST/ALT level, etiology is undetermined. No bile duct obstruction identified on US liver. - Likely secondary to hepatitis as below - AST of 1183, ALT greater than 500, alkaline phosphatase 330 - Hepatitis screening panel did return positive for hepatitis A IgM and hepatitis C antibody - Absolutely avoid hepatotoxic medications - Patient denies recent new medication. He take Aleve for pain occasionally recently. - Closely coagulation studies within normal limits - Gastroenterology consult on admission, general surgery consult in emergency room Plan - We will obtain hepatitis quantification lab results as well as HIV screen - Supportive treatment for hepatitis A, will defer to gastroenterology for hepatitis C treatment - Avoid hepatotoxic agents. Toradol when necessary pain -Contact Precautions for hepatitis A per CDC recommendations Liver function tests downtrending, lipase downtrending MRCP showing ascites and edema secondary to hepatitis likely GI will follow as outpatient in no acute needs Patient will be discharged (2) Acalculous cholecystitis Priority: Secondary Status: Ruled-out Assessment and Plan: - US liver shows acalculous cholecystitis given pericholecystic fluid, stranding , thickened gallbladder wall - Surgical consult was called by ER. - Patient does not appear to be in any distress, evaluated by both general surgery and gastroenterology who agreed that this is less likely a calculus cholecystitis and more likely a result of hepatitis with possible coinciding pancreatitis Plan - Place patient on nothing by mouth, IV fluid - Gastroenterology will plan for MRCP this afternoon to rule out choledocholithiasis - No plans for surgical intervention at this time - IV Zosyn continued day #2 (3) Pancreatitis Priority: Secondary Status: Acute Assessment and Plan: - Patient has elevated lipase of 268 which is down trending from 336 on admission. - Gastroenterology is following, we will perform an MRCP to rule out choledocholithiasis - Continue supportive treatment including pain meds, fluids, nothing by mouth - He performed in emergency room shows no evidence of pancreatitis on CT scan - Patient does meet 2/3 criteria given abdominal pain, elevated lipase Plan - Follow-up lipase level - Continue supportive treatment as above Unlikely diagnosis pancreatitis, patient is tolerating oral diet, pain improved Qualifiers: Chronicity: acute Pancreatitis type: unspecified pancreatitis type Acute pancreatitis complication: unspecified Qualified Code(s): K85.90 - Acute pancreatitis without necrosis or infection, unspecified (4) Jaundice Priority: Secondary Status: Acute Assessment and Plan: - Direct bilirubin dominated, however, no bile duct obstruction identified. - Consult surgery and GI for further recommendation - Secondary to positive hepatitis C, hepatitis A - Continue supportive treatment and appreciate gastroneurology recommendations Plan - Closely follow-up liver function - Keep patient nothing by mouth, IV fluid. (5) Hepatitis A Priority: Secondary Status: Acute Assessment and Plan: - Hepatitis A IgM positive on screening test - Unclear etiology as patient has no recent travel, unusual food ingestion - GI following, appreciate recommendations Plan - Continue supportive treatment Qualifiers: Hepatic coma status: without hepatic coma Qualified Code(s): B15.9 - Hepatitis A without hepatic coma (6) Hepatitis C Priority: Primary Status: Acute Assessment and Plan: - Hepatitis C antibody positive on screening test - Patient denies previous history of infection, states that he was screened in June 2017 and was negative at that time - Does have a history of IV drug use, however he does deny use in the last 2 years - Multiple tattoos present - Gastroenterology following Plan - Continue supportive treatment - Trend liver function tests - Deferred gastroenterology, we will likely require outpatient treatment - We will obtain quantification and genotype, HIV test Laboratory results pending, follow GI other outpatient Qualifiers: Viral hepatitis chronicity: unspecified Hepatic coma status: without hepatic coma Qualified Code(s): B19.20 - Unspecified viral hepatitis C without hepatic coma (7) DVT prophylaxis Priority: Secondary Status: Acute Assessment and Plan: EPCD (8) Electrolyte abnormality Priority: Secondary Status: Resolved Assessment and Plan: - Patient notably hypokalemic at 3.3 with a magnesium of 1.5 - We will replenish as necessary and trend lab results daily Hospital course: Mr. Sinclair is a 37 year old male with past medical history of rheumatoid arthritis and ankylosing spondylitis as well as IV drug use. Last drug use was approximately 2 years ago. He presented to the [facility] with low back pain and yellowing of the eyes. He reports that he has had these symptoms for about 5 days. He also admits to recent trauma involving his car door hitting him in the lower back on the same side of his symptoms. In addition he has also been complaining of right upper quadrant pain, epigastric pain, nausea, vomiting, and light colored stools. Patient's vitals upon admission at the emergency department were unremarkable. Patient's labs on admission revealed elevated total bilirubin at 5.7, direct bilirubin 4.4, indirect bilirubin at 1.3, elevated AST at 1500, elevated ALT at greater than 500, elevated alkaline phosphatase, alkaline phosphatase 360, and elevated lipase at 336. The UA on admission showed orange colored urine with a trace amount of leukocyte estrogen esterase and microscopic 30-[address] abdomen without IV contrast shows showed gallbladder is mildly contracted diffuse wall thickening, Pericholecystic fluid, Portal edema. Right upper quadrant ultrasound showed gallbladder wall appears to be thick walled and adventitious but no gallstones were visualized. Findings suggest the possibility of acalculous cholecystitis. General surgery was consulted in the ER and patient was admitted to medicine service for further evaluation and management of transaminitis and jaundice. During course of hospital stay, patient gradually improved. GI was consult treated for the transaminitis and he was placed IV Zosyn for possible acalculous cholecystitis. Labs were drawn and they were positive for hep C antibody as well as Hep A IgM. He was seen by GI who decided to do an MRCP. The MRCP showed edema secondary to hepatitis and cholecystitis could not be excluded. General surgery evaluated the patient and believed it was not impressive for cholecystitis and believed that the patient would not benefit with any further intervention. Patient was treated symptomatically and supportively by giving the patient pain meds for pain control, IV fluids, and started the patient on nothing by mouth with gradual progression to solid foods. Lab results were monitored for the next few days and there were trending downwards with gradual improvement. Patient's symptoms did improve, and with GIs opinion we agreed upon discharging the patient with close outpatient follow-up. He was instructed to avoid Tylenol for pain control. He was instructed to follow-up with his PCP as well as GI for further management of his chronic condition. He will be discharged home in stable medical condition. He does have confirmatory labs pending results at time of discharge. - Time Spent with Patient Total time spent providing and/or coordinating discharge services: - Discharge Medications Prescriptions: Ibuprofen 800 mg PO Q6HR PRN #16 tablet PRN Reason: Pain Home Medications: Ibuprofen 800 mg PO Q6HR PRN #16 tablet 11/26/17 [Rx] Allergies/Adverse Reactions: 3 Allergy/AdvReac Type Severity Reaction Status Date / Time No Known Allergies Allergy Verified 05/09/16 23:50 Date of admission: 11/25/17 03:18 Primary care physician: PCP NONE Consults: 11/25/17 03:23 Consult to Gastroenterology [CONS] Routine Consulting Provider: Gastroenterology Eliana Reason for Consult: Abnormal liver function test Call Completed: No Discharging clinician: Efren Garcia Anticipated date of discharge: 11/26/17 - Constitutional Vitals: Temp Pulse Resp BP Pulse Ox 97.9 F 59 12 116/76 97 11/26/17 10:44 11/26/17 10:44 11/26/17 10:44 11/26/17 10:44 11/26/17 10:44 General appearance: Present: mild distress, A&O X 3, answers questions appropriately Exam: Gen.: Vitals noted. No acute distress. AAOx3 HEENT: PERRL/EOMI, oropharynx clear, Normocephalic, atraumatic, scleral icterus present Neck: Supple. No adenopathy. Cardiac: RRR, no murmur, +S1/S2 Pulmonary: CTA bilaterally, no wheezes, rales or rhonchi, equal chest expansion Abdomen: soft, mild tenderness palpation in epigastric and right upper quadrant , improved from previous, BS noted, no guarding Back: Mildly tender in right lower paraspinal MSK: ROM intact, no joint swelling noted Extremities: no BLE edema, nontender calf, no cyanosis or clubbing Neuro: A&Ox3, moves all extremities, no focal deficits Psych: Appropriate mood and behavior - Patient Status Disposition: Home, Self-Care Condition: Good Functional capacity at discharge: independent ambulation Overall status at discharge: patient is progressing back to baseline - Discharge Instructions Follow Up With: Dann Patel DO [Resident] - 11/30/17 10:00 am Marian Shetty MD [Partnered Physician] - (Web request entered, office will call patient with date and time. Thank you!!!! ) Additional Instructions: Please follow up with her primary care physician and take all medications as prescribed. We will send and ibuprofen for or pain. Schedule you for a follow- up appointment with gastroenterology for further management of your hepatitis. - Diet and Activity Activity: increase activity as tolerated, resume usual activities as tolerated Diet: advance to your usual diet - VTE Documentation of Mechanical Device: Intermittent pneumatic compression device <Tamar Hummel - Last Filed: 11/26/17 20:26> Orders not resulted at time of discharge: Pending orders 11/25/17 15:04 HIV Qualitative PCR(Detection) Routine Hepatitis C Qnt Reflx Genotype Routine 11/26/17 13:46 NITESH IgG KAYCEE rflx IFA Routine Alpha-1-AT Deficiency Reflex Routine Ceruloplasmin Routine MPO/PR3 (ANCA) Antibodies Routine Mitochondrial M2 Antibody, IgG Routine Date of Encounter: 11/26/17 - Discharge Diagnosis (1) DVT prophylaxis Status: Acute (2) Acalculous cholecystitis Status: Ruled-out (3) Pancreatitis Status: Acute Qualifiers: Chronicity: acute Pancreatitis type: unspecified pancreatitis type Acute pancreatitis complication: unspecified Qualified Code(s): K85.90 - Acute pancreatitis without necrosis or infection, unspecified (4) Jaundice Status: Acute (5) Abnormal liver function Status: Acute (6) Hepatitis A Status: Acute Qualifiers: Hepatic coma status: without hepatic coma Qualified Code(s): B15.9 - Hepatitis A without hepatic coma (7) Hepatitis C Status: Acute Qualifiers: Viral hepatitis chronicity: unspecified Hepatic coma status: without hepatic coma Qualified Code(s): B19.20 - Unspecified viral hepatitis C without hepatic coma (8) Electrolyte abnormality Status: Resolved Hospital course: Mr. Sinclair is a 37 year old male - Time Spent with Patient Total time spent providing and/or coordinating discharge services: Date of admission: 11/25/17 03:18 Primary care physician: PCP NONE Consults: 11/25/17 03:23 Consult to Gastroenterology [CONS] Routine Consulting Provider: Gastroenterology Eliana Reason for Consult: Abnormal liver function test Call Completed: No - Constitutional Vitals: Temp Pulse Resp BP Pulse Ox 97.9 F 59 12 116/76 97 11/26/17 10:44 11/26/17 10:44 11/26/17 10:44 11/26/17 10:44 11/26/17 10:44 - Attending Attestation I performed a history and physical examination of the patient and discussed his/ her management with the resident. I reviewed the residents note and agree with the documented findings and plan of care.
--- NOTE | 2017-11-26 15:12 | Gastroenterology Progress Note ---
Date of Encounter: 11/26/17 Time of Encounter: 13:00 - Assessment and plan (1) Abnormal liver function Status: Acute Assessment and plan: Pt has elevated LFTs most likely due to Hep C infection. Mri was negative choledocholithiasis, but showed ascites, gall bladder wall edema and nonspecific adenopathy. Pt denies severe pain in rUq. GB findings may be due to edema from hepatitis/ascites. Will order further workup to rule out autoimmune hepatitis, alpha-1 deficiency, etc. Will follow up as an outpatient with Dr Shetty. - Time Spent With Patient Total time spent is greater than 50% in coordination of care (as documented) at patient's floor/unit and/or counseling patient: - Subjective Interval history: Pt is awake in bed. He continues to complain of mild lower back pain. He denies abdominal pain, nausea or vomiting. - Constitutional Vitals: Temp Pulse Resp BP Pulse Ox 97.9 F 59 12 116/76 97 11/26/17 10:44 11/26/17 10:44 11/26/17 10:44 11/26/17 10:44 11/26/17 10:44 Exam: CONSTITUTIONAL:~alert, no acute distress.~HEAD:~normocephalic.~EYES:~jaundice.~ NECK:~no obvious swelling.~HEART:~regular rate and rhythm, no murmurs.~LUNGS:~ bilateral good air entry.~ABDOMEN:~non distended, soft, non tender, no masses palpable, no organomegaly.~RECTAL EXAM:~Deferred.~EXTREMITIES:~no clubbing, cyanosis or edema.~SKIN:~jaundice noted.~NEUROLOGIC:~no obvious focal defect.~~~ ~ Results - Labs CBC & Chem 7: 11/26/17 06:01 11/26/17 06:01 Labs: Last Result Calcium 8.0 mg/dL (8.6-10.3) L 11/26/17 06:01 Entire Visit Hgb 13.0 g/dL (12.9-16.9) 11/26/17 06:01 Hct 38.7 % (37.5-50.1) 11/26/17 06:01 PT 12.8 Seconds (9.4-12.1) H 11/25/17 04:38 Total Bilirubin 6.3 mg/dL (0.3-1.0) H 11/26/17 06:01 AST 617 Units/L (13-39) H 11/26/17 06:01 ALT > 500 Units/L (7-52) H 11/26/17 06:01 Lipase 131 Units/L (11-82) H 11/26/17 06:01 - ABG ABG results: PT/INR, D-dimer PT 12.8 Seconds (9.4-12.1) H 11/25/17 04:38 - Impressions Impressions Abdomen MRI 11/25/17 10:03 IMPRESSION: 1. Exam is degraded because of ascites. 2. Nonspecific periportal edema may be related to ascites or hepatitis. 3. The gallbladder appears contracted with pericholecystic fluid. Acute cholecystitis cannot be excluded. 4. Grossly unremarkable appearance of the common bile duct. Pancreatic duct is not well demonstrated but gross appears unremarkable as well. 5. Nonspecific dena hepatis adenopathy is probably reactive. D/ / Albert Yancey / Albert Yancey Interpreting Provider: Albert Yancey - VTE Documentation of Mechanical Device: Intermittent pneumatic compression device Consult Discharge Plan - Plan Additional Instructions: Please follow up with her primary care physician and take all medications as prescribed. We will send and ibuprofen for or pain. Schedule you for a follow- up appointment with gastroenterology for further management of your hepatitis. Referrals: Dann Patel DO [Resident] - 11/30/17 10:00 am Marian Shetty MD [Partnered Physician] - (Web request entered, office will call patient with date and time. Thank you!!!! ) Prescriptions: Ibuprofen 800 mg PO Q6HR PRN #16 tablet PRN Reason: Pain
[2017-11-28 10:24] LABS: HCV Quant Interpretation NOT DETECTED (Not Detected)
[2017-11-30 11:49] LABS: ANA IgG by ELISA DETECTED (None Detected)
[2017-12-01 09:40] LABS: Myeloperoxidase Ab 0 AU/mL (0-19); Serine Protease-3 Antibody 4 AU/mL (0-19)
[2017-12-04 09:59] LABS: A1A SZ Specimen WHOLE BLOOD; Alpha-1-Antitrypsin S Allele NEGATIVE; Alpha-1-Antitrypsin Z Allele NEGATIVE
[2017-12-04 14:58] LABS: Alpha-1-Antitrypsin 176 mg/dL (90-200)
== END 2017-11-26 14:55 | disposition home or self-care (01) ==
LOC: 3ANU 19:22 → EMEROO 19:22 → 3ANU 11-25 00:22
PROVIDERS: ADMIT Internal Medicine; ATTEND Internal Medicine